=== PATIENT | female | born 1995 | race Caucasian/White ===

== ENCOUNTER 2023-10-06 17:25 | Inpatient (IN) ==
[2023-10-06] MEDS ORDERED: Lactated Ringers 1000 ml BAG 1,000 ML IV ONE ×2 (17:34→19:23)
[2023-10-06] MEDS ORDERED: Buffered Lidocaine 1% SYRIN 1 ml INTRADERM ONE (17:34)
[2023-10-06] MEDS ORDERED: Penicillin G Potassium IV 5,000,000 UNITS in NS 0.9% 100 ml BAG 100 ML IVPB ONE (17:34)
[2023-10-06] MEDS ORDERED: Lidocaine 1% VIAL 10 MG/ML 30 ML VIAL INJ PRN (17:34)
[2023-10-06] MEDS ORDERED: Lactated Ringers 1000 ml BAG 1,000 ML IV SCH ×2 (18:00→20:00)
[2023-10-06] MEDS ORDERED: OBEPIDURAL (200 ML) 200 ML EPIDURAL ONE (18:09)
[2023-10-06] MEDS ORDERED: Lidocaine 1.5% EPI 1:200,000 30 ML SDV ONE (18:09)
[2023-10-06 18:10] LABS: Hematocrit 29.8 % (35-45); Hemoglobin 9.7 g/dL (11.5-14.3); Mean Corpuscular Hemoglobin 30.1 pg (27-33); Mean Corpuscular Hgb Conc 32.5 g/dL (31-36); Mean Corpuscular Volume 92.5 fL (80-97); Mean Platelet Volume 10.2 fL (7.5-11.2); Platelet Count 312 10^3/uL (150-450); Red Blood Count 3.22 10^6/uL (3.63-4.92); Red Cell Distribution Width 14.1 % (12-17)
[2023-10-06 18:40] LABS: ABS Basophils 0.1 10^3/uL (0.0-0.1); ABS Lymphocytes 2.5 10^3/uL (1.0-4.8); ABS Monocytes 2.5 10^3/uL (0.0-0.9); ABS Neutrophils 28.8 10^3/uL (1.5-7.6); ABS Nucleated RBC 0.01 10^3/ul; Eosinophil % 0.1 %; Lymphocyte % 7.4 %
[2023-10-06] MEDS ORDERED: Sodium Citrate/Citric Acid LIQ 15 ML UDC PO PRN (19:23)
[2023-10-06] MEDS ORDERED: Phenylephrine 40 mcg/mL 10mL (400mcg) SYRINGE IV PUSH PRN ×2 (19:23)
[2023-10-06] MEDS ORDERED: Lactated Ringers 1000 ml BAG 500 ML IV PRN ×2 (19:23)
[2023-10-06] MEDS ORDERED: OBEPIDURAL (200 ML) 200 ML EPIDURAL SCH (20:00)
[2023-10-06 20:28] LABS: Urine Appearance Clear; Urine Bilirubin Negative (Negative); Urine Blood Negative (Negative); Urine Color Yellow; Urine Glucose Negative (Negative); Urine Ketones 1+ (Negative); Urine Nitrite Negative (Negative); Urine Protein Negative (Negative); Urine Specific Gravity 1.019 (1.002-1.030); Urine Urobilinogen Negative (Negative)
[2023-10-06 20:39] LABS: Urine Benzodiazepine Screen None Detected (None Detect); Urine Cannabinoids Screen Presumptive Positive (None Detect); Urine Opiates Screen None Detected (None Detect)
[2023-10-06] MEDS ORDERED: Oxytocin in LR 0 MILLI.UNIT/0 ML BAG IV ONE (20:58)
[2023-10-06] MEDS ORDERED: Witch Hazel PAD JAR TOPICAL PRN (21:06)
[2023-10-06] MEDS ORDERED: Glycerin ADULT 2.4 gm SUPP PR PRN (21:06)
[2023-10-06] MEDS ORDERED: Dibucaine 1% OINT 28.35 GM TUBE PR PRN (21:06)
[2023-10-07 07:15] LABS: Hematocrit 24.8 % (35-45); Hemoglobin 8.2 g/dL (11.5-14.3); Mean Corpuscular Hemoglobin 30.4 pg (27-33); Mean Corpuscular Hgb Conc 33.1 g/dL (31-36); Mean Corpuscular Volume 91.7 fL (80-97); Mean Platelet Volume 9.6 fL (7.5-11.2); Platelet Count 271 10^3/uL (150-450); Red Blood Count 2.71 10^6/uL (3.63-4.92); White Blood Count 33.7 10^3/uL (3.8-11.8)
[2023-10-07 07:18] LABS: ABS Lymphocytes 2.8 10^3/uL (1.0-4.8); ABS Monocytes 2.2 10^3/uL (0.0-0.9); ABS Neutrophils 28.7 10^3/uL (1.5-7.6); Eosinophil % 0.1 %; Lymphocyte % 8.4 %
[2023-10-08 08:21] LABS: ABS Basophils 0.1 10^3/uL (0.0-0.1); ABS Eosinophils 0.2 10^3/uL (0.0-0.5); ABS Lymphocytes 2.8 10^3/uL (1.0-4.8); ABS Neutrophils 14.3 10^3/uL (1.5-7.6); Eosinophil % 0.9 %; Hematocrit 28.6 % (35-45); Hemoglobin 9.5 g/dL (11.5-14.3); Lymphocyte % 15.4 %; Mean Corpuscular Hemoglobin 30.5 pg (27-33); Mean Corpuscular Hgb Conc 33.3 g/dL (31-36); Mean Corpuscular Volume 91.4 fL (80-97); Mean Platelet Volume 9.2 fL (7.5-11.2); Platelet Count 319 10^3/uL (150-450); Red Blood Count 3.13 10^6/uL (3.63-4.92); White Blood Count 18.3 10^3/uL (3.8-11.8)
[2023-10-08] MEDS ORDERED: medroxyPROGESTERone ACETATE 150 MG/ML VIAL IM ONE (10:00)
[2023-10-08 19:53] VITALS: BP 137/96
== END 2023-10-08 21:00 | disposition home or self-care (01) | DRG 560 ==
LOC: MCHOBOUT 17:25 → MCHOB 17:35
PROVIDERS: ADMIT Midwife; ATTEND Midwife